=== PATIENT | female | born 2000 | race Caucasian/White ===

== ENCOUNTER 2019-01-11 21:33 | Emergency (ER) | payer OTHER, MEDICAID ==
[2019-01-11] MEDS ORDERED: Ondansetron 4 MG/2 ML SDV IVPUSH ONE (21:46)
[2019-01-11] MEDS ORDERED: Diphtheria,Pertussis(Acell),Tetanus Vaccine 0.5 ML SDV IM ONE (21:47)
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
[2019-01-11] MEDS ORDERED: HYDROmorphone 0.5 MG/0.5 ML Syringe IVPUSH ONE ×2 (21:54→23:06)
[2019-01-11] MEDS ORDERED: HYDROmorphone 0.5 MG/0.5 ML Syringe ONE (21:55)
[2019-01-11] MEDS ORDERED: Sodium Chloride 0.9% 1,000 ML IV SCH (22:00)
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
[2019-01-11] MEDS ORDERED: Lidocaine 1% 20 ML MDV INJECT ONE ×2 (23:16→23:37)
[2019-01-11] MEDS ORDERED: Bacitracin Oint 1 GM U/D Packet TOP ONE (23:16)
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
[2019-01-11] MEDS ORDERED: LORazepam 2 MG/ML SDV IVPUSH ONE (23:31)
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
[2019-01-12] MEDS ORDERED: Iopamidol 612 MG/ML 100 ML Bottle IV STA (00:23)
[2019-01-12] MEDS ORDERED: Lidocaine 2% Jelly 30 ML Tube MUCMEM ONE (00:51)
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
[2019-01-12] MEDS ORDERED: Acetaminophen/oxyCODONE 325-5 MG Tab PO ONE (01:03)
[2019-01-12] MEDS ORDERED: Lidocaine 2% Viscous Solution 15 ML Cup PO ONE (01:04)
--- NOTE | 2019-01-12 09:37 | CRLCR ---
INDICATION: pain in the middle of her back, only did two views, and said no more INDICATION: Back pain. TECHNIQUE: Lumbar spine, AP and oblique views. COMPARISON: None FINDINGS: Bones: Alignment is normal. No fractures or significant bone lesions. Joints: Disc spaces and facets are unremarkable. Soft tissues: Unremarkable. IMPRESSION: 1. No acute abnormality. 2. A true lateral projection was not included for interpretation. Dictated by Eduardo Sims MD @ 01/12/2019 9:35:39 AM Dictated by: Eduardo Sims MD @ 01/12/2019 09:35:44 (Electronically Signed)
== END 2019-01-12 02:03 | disposition home or self-care (01) ==
LOC: JP.ED 21:33
DX: S22.019A Unspecified fracture of first thoracic vertebra, initial encounter for closed fracture (principal); S02.5XXA Fracture of tooth (traumatic), initial encounter for closed fracture; S01.81XA Laceration without foreign body of other part of head, initial encounter; S30.811A Abrasion of abdominal wall, initial encounter; Z23 Encounter for immunization; Z79.899 Other long term (current) drug therapy; V48.5XXA Car driver injured in noncollision transport accident in traffic accident, initial encounter
CPT/HCPCS: 12015; 36415; 70450; 70486; 71045; 72100; 72125; 74177; 80053; 80320; 81001; 81025; 83690; 85025; 90471; 90715; 96361; 96374; 96375; 96376; 99284; A9270; J1170; J2001; J2060; J2405; J7030; Q9967; G0480

== ENCOUNTER 2022-10-16 17:18 | Emergency (ER) | payer MEDICAID | END 2022-10-16 18:40 | disposition home or self-care (01) | LOC: JP.ED 17:18 | DX: Z30.432 Encounter for removal of intrauterine contraceptive device (principal); Z87.891 Personal history of nicotine dependence | CPT/HCPCS: 99283 ==

== ENCOUNTER 2023-02-20 18:54 | Emergency (ER) | payer MEDICAID ==
[2023-02-20 19:32] LABS: AMPHETAMINES SCREEN, URINE NEGATIVE (NEGATIVE); BARBITURATE SCREEN,URINE NEGATIVE (NEGATIVE); BENZODIAZEPINES SCREEN,URINE NEGATIVE (NEGATIVE); METHADONE SCREEN, URINE NEGATIVE (NEGATIVE); METHAMPHETAMINES SCREEN, URINE NEGATIVE (NEGATIVE); OXYCODONE SCREEN,URINE NEGATIVE (NEGATIVE); PROPOXYPHENE SCREEN,URINE NEGATIVE (NEGATIVE); THC SCREEN,URINE 50 NG/ML PRESUMPTIVE POSITIVE (NEGATIVE)
[2023-02-20 19:47] LABS: BASOPHILS ABSOLUTE AUTO 0.04 K/uL (0.00-0.10); BASOPHILS PERCENT AUTO 0.5 % (0.1-1.3); EOSINOPHILS ABSOLUTE AUTO 0.06 K/uL (0.00-0.40); EOSINOPHILS PERCENT AUTO 0.8 % (0.0-5.4); HEMATOCRIT 39.6 % (34.3-46.0); HEMOGLOBIN 13.7 g/dL (11.2-15.5); IMMATURE GRAN PERCENT AUTO 0.3 % (0.0-0.7); LYMPHOCYTES ABSOLUTE AUTO 1.98 K/uL (0.8-3.3); LYMPHOCYTES PERCENT AUTO 25.8 % (11.4-47.7); MEAN CORPUSCULAR HEMOGLOBIN 30.9 pg (31.6-35.5); MEAN CORPUSCULAR HGB CONC 34.6 g/dL (31.6-35.5); MEAN CORPUSCULAR VOLUME 89.2 fL (81.4-99.0); MONOCYTES ABSOLUTE AUTO 0.43 K/uL (0.20-0.90); MONOCYTES PERCENT AUTO 5.6 % (3.3-12.6); NEUTROPHILS ABSOLUTE AUTO 5.13 K/uL (1.0-7.6); PLATELET COUNT,PLT 240 K/uL (130-375); RED BLOOD CELL COUNT 4.44 M/uL (3.77-5.24); WHITE BLOOD CELL COUNT,WBC 7.7 K/uL (3.2-11.0)
[2023-02-20 19:51] LABS: IMMATURE GRAN ABSOLUTE AUTO 0.02 K/uL (0.00-0.23)
[2023-02-20 20:11] LABS: A/G RATIO 1.4 (1.2-2.2); ALANINE AMINOTRANSFERASE,ALT 24 U/L (12-78); ALBUMIN 4.3 g/dL (3.4-5.0); ALKALINE PHOSPHATASE 53 U/L (46-116); ASPARTATE AMNIOTRANSFERASE,AST 20 U/L (15-37); BILIRUBIN TOTAL 0.4 mg/dL (0.2-1.0); BLOOD UREA NITROGEN,BUN 12 mg/dL (7-18); CALCIUM 8.7 mg/dL (8.5-10.1); CARBON DIOXIDE,CO2 28 mmol/L (21-32); CHLORIDE,CL 102 mmol/L (100-108); CREATININE 0.8 mg/dL (0.6-1.0); EST CRCL DRUG DOSING (CG) 78.56 mL/min; ESTIMATED GFR 106 mL/min (>60); GLUCOSE RANDOM 144 mg/dL (74-106); POTASSIUM,K 3.7 mmol/L (3.6-5.2); PROTEIN TOTAL,TP 7.4 g/dL (6.4-8.2); SODIUM,NA 140 mmol/L (140-148)
== END 2023-02-20 20:28 | disposition home or self-care (01) ==
LOC: JP.ED 18:54
DX: R53.83 Other fatigue (principal)
CPT/HCPCS: 36415; 80053; 80305-QW; 80307; 85025; 99282; 99284